=== PATIENT | female | born 1945 | race Caucasian/White ===

== ENCOUNTER → 2020-11-20 | Outpatient (CLI) | payer OTHER | LOC: MAMO 12:37 | DX: Z12.31 Encounter for screening mammogram for malignant neoplasm of breast (principal); M81.0 Age-related osteoporosis without current pathological fracture; M85.88 Other specified disorders of bone density and structure, other site; M85.852 Other specified disorders of bone density and structure, left thigh | CPT/HCPCS: 77063; 77067; 77080 ==

== ENCOUNTER → 2021-01-24 | Outpatient (CLI) | payer OTHER | LOC: MAMO 12:59 | DX: R92.8 Other abnormal and inconclusive findings on diagnostic imaging of breast (principal); N63.41 Unspecified lump in right breast, subareolar | CPT/HCPCS: 76641-RT; 77065; G0279 ==

== ENCOUNTER 2021-04-16 00:58 | Inpatient (IN) | payer OTHER ==
[~2021-04-16] VITALS: Ht 160 cm; Wt 58.1 kg
[2021-04-16 02:11] LABS: HEMOGLOBIN 11.7 gm/dl (12.3-15.3); RED BLOOD COUNT 3.58 M/UL (4.00-5.10); WHITE BLOOD COUNT 11.1 K/UL (4.5-11.0)
[2021-04-16 02:44] LABS: BUN/CREATININE RATIO 37 (0-10)
[2021-04-16] MEDS ORDERED: IBUPROFEN800 MG PO (03:18)
[2021-04-16] MEDS ORDERED: TRAMADOL HCL50 MG PO (03:19)
[2021-04-16] MEDS ORDERED: HYDROCHLOROTH12.5 M1 PO (03:19)
[2021-04-16] MEDS ORDERED: OMEPRAZOLE40 MG PO (03:20)
[2021-04-16] MEDS ORDERED: CRESTOR5 MG PO (03:22)
[2021-04-16] MEDS ORDERED: CLARITIN10 MG PO (03:23)
== END 2021-04-17 14:51 | disposition home or self-care (01) | DRG 561 ==
LOC: ER1 00:58 → CDU 03:02 → M/S 03:02
PROVIDERS: Orthopaedic Surgery; Physician Assistant; ADMIT Internal Medicine
PROC: 0SS Lower Joints, Reposition (ICD-10-PCS; principal; 2021-04-16 18:00)
DX: T84.020A Dislocation of internal right hip prosthesis, initial encounter (principal); W01.0XXA Fall on same level from slipping, tripping and stumbling without subsequent striking against object, initial encounter; Z20.822 Contact with and (suspected) exposure to COVID-19; M19.90 Unspecified osteoarthritis, unspecified site; Z96.641 Presence of right artificial hip joint; I10 Essential (primary) hypertension; Z79.899 Other long term (current) drug therapy
CPT/HCPCS: 27266; 51702; 73501; 73502; 73552; 80053; 82550; 82553; 83874; 84484; 85025; 93005; 96374; 96375; 97162; 97166; 97530; 97535; 99284; J1170; J2001; J2270; J2405; J2704; J3010; J3360; J7030; J7120; U0002